=== PATIENT | female | born 1960 | race Caucasian/White ===

== ENCOUNTER → 2020-11-28 | Outpatient (CLI) | payer OTHER ==
[~2020-11-28] VITALS: Ht 157.5 cm; Wt 83.0 kg
[~2020-11-28] MED LIST: AMITRIPTYLINE H50 M3 PO; BUPROPION HCL100 MG PO; CYCLOBENZAPRINE5 MG PO; FLUVOXAMINE MA100 MG PO; FOLIC ACID1 MG PO; LIPITOR40 MG PO; METHOTREXATE 22.5 M1 PO; NEURONTIN600 MG PO; PLAQUENIL200 MG PO; PREDNISONE 5 MG5 MG PO; PROCARDIA XL30 MG PO; PROTONIX40 M4 PO; PROVIGIL 200 M200 MG PO; SAVELLA50 MG PO; SUPER THERAVIT1 EACH PO; VITAMIN C500 M1 PO; VITAMIN D250 MC1 PO
[2020-11-28 11:19] VITALS: BP 119/91
--- NOTE | 2020-11-28 11:26 | NUR ---
Pain Clinic Assessment: 1. History of Osteoarthritis: KNEES SHOULDERS HANDS WRISTS ANKLES BACK History of Rheumatoid Arthritis: LUPUS 2. Height: 5 ft. 2 in. 157.5 cm. Weight: 183.0 lb. oz. 83.008 kg. Patient's BMI: 33.5 3. Vital Signs: BP: 119/91 Pulse: 76 Resp: 16 Temp: 02 Sat: 100 ECG Mon: 4. Pain Intensity: 6 5. Fall Risk: Dizziness: Needs help standing or walking: Fallen in the last 3 months: Fall risk comments: 6. Patient on Blood Thinner: None 7. History of Hypertension: Y 8. Opioid Therapy greater than 6 weeks: N Opiate Contract Signed: 9. Risk Assessment Tool Provided: LOW-3 10. Functional Assessment Tool: 49/70 11. Recreational Drug Use: Never Drug Type: Tobacco Use: Current Every Day Smoker Tobacco Type: E-Cigarettes Amount or Packs/day: How Many Years: 40 Alcohol Use: Yes Frequency: Weekly Quant: 2
== END ==
LOC: PAIN 07:06
PROVIDERS: ATTEND Anesthesiology Pain Medicine
DX: M54.16 Radiculopathy, lumbar region (principal); M79.7 Fibromyalgia; N18.9 Chronic kidney disease, unspecified; M89.29 Other disorders of bone development and growth, multiple sites; M25.511 Pain in right shoulder; M25.512 Pain in left shoulder; M54.31 Sciatica, right side; M79.605 Pain in left leg; Z79.899 Other long term (current) drug therapy; Z88.8 Allergy status to other drugs, medicaments and biological substances

== ENCOUNTER → 2020-12-03 | Outpatient (CLI) | payer OTHER ==
[~2020-12-03] VITALS: Ht 157.5 cm; Wt 83.0 kg
[2020-12-03 13:06] VITALS: BP 144/86
--- NOTE | 2020-12-03 13:25 | NUR ---
Pain Clinic Assessment: 1. History of Osteoarthritis: KNEES SHOULDERS HANDS WRISTS ANKLES BACK History of Rheumatoid Arthritis: LUPUS 2. Height: 5 ft. 2 in. 157.5 cm. Weight: 183.0 lb. oz. 83.008 kg. Patient's BMI: 33.5 3. Vital Signs: BP: 144/86 Pulse: 80 Resp: 16 Temp: 02 Sat: 100 ECG Mon: 4. Pain Intensity: 8 5. Fall Risk: Dizziness: N Needs help standing or walking: N Fallen in the last 3 months: N Fall risk comments: 6. Patient on Blood Thinner: None 7. History of Hypertension: Y 8. Opioid Therapy greater than 6 weeks: N Opiate Contract Signed: 9. Risk Assessment Tool Provided: LOW-3 10. Functional Assessment Tool: 49/70 11. Recreational Drug Use: Never Drug Type: Tobacco Use: Current Every Day Smoker Tobacco Type: Cigarettes Amount or Packs/day: How Many Years: Alcohol Use: Yes Frequency: Quant:
== END | disposition home or self-care (01) ==
LOC: PAIN 10:22
PROVIDERS: ATTEND Anesthesiology Pain Medicine
DX: M54.16 Radiculopathy, lumbar region (principal); G89.29 Other chronic pain; N18.9 Chronic kidney disease, unspecified; M25.511 Pain in right shoulder; M25.512 Pain in left shoulder; I10 Essential (primary) hypertension; M19.90 Unspecified osteoarthritis, unspecified site; M79.7 Fibromyalgia; F17.210 Nicotine dependence, cigarettes, uncomplicated; Z98.890 Other specified postprocedural states; Z90.710 Acquired absence of both cervix and uterus; Z79.899 Other long term (current) drug therapy; Z96.653 Presence of artificial knee joint, bilateral; Z98.84 Bariatric surgery status

== ENCOUNTER → 2021-01-23 | Outpatient (CLI) | payer OTHER ==
[~2021-01-23] VITALS: Ht 157.5 cm; Wt 85.8 kg
[~2021-01-23] MED LIST changes: +MEDROLDOSEPACK PO; +ROXICODONE5 M2 PO
[2021-01-23 08:36] VITALS: BP 132/67
--- NOTE | 2021-01-23 08:52 | NUR ---
Pain Clinic Assessment: 1. History of Osteoarthritis: KNEES SHOULDERS HANDS WRISTS ANKLES BACK History of Rheumatoid Arthritis: LUPUS 2. Height: 5 ft. 2 in. 157.5 cm. Weight: 189.2 lb. oz. 85.821 kg. Patient's BMI: 34.6 3. Vital Signs: BP: 132/67 Pulse: 83 Resp: 20 Temp: 02 Sat: 97 ECG Mon: 4. Pain Intensity: BACK 7; L LEG 0 REST,10 5. Fall Risk: Dizziness: Y Needs help standing or walking: N Fallen in the last 3 months: N Fall risk comments: 6. Patient on Blood Thinner: None 7. History of Hypertension: Y 8. Opioid Therapy greater than 6 weeks: N Opiate Contract Signed: 9. Risk Assessment Tool Provided: LOW-3 10. Functional Assessment Tool: 49/70 11. Recreational Drug Use: Never Drug Type: Tobacco Use: Current Every Day Smoker Tobacco Type: E-Cigarettes Amount or Packs/day: How Many Years: Alcohol Use: Yes Frequency: Weekly Quant: 2
== END | disposition home or self-care (01) ==
LOC: PAIN 01-09 11:00
PROVIDERS: ATTEND Anesthesiology Pain Medicine
DX: M54.16 Radiculopathy, lumbar region (principal); M79.7 Fibromyalgia; N18.9 Chronic kidney disease, unspecified; G89.29 Other chronic pain; F17.210 Nicotine dependence, cigarettes, uncomplicated; Z98.890 Other specified postprocedural states; Z79.899 Other long term (current) drug therapy; Z90.710 Acquired absence of both cervix and uterus; Z87.442 Personal history of urinary calculi; Z96.653 Presence of artificial knee joint, bilateral; Z88.8 Allergy status to other drugs, medicaments and biological substances